=== PATIENT | female | born 1940 | race Caucasian/White ===

== ENCOUNTER 2022-10-23 06:08 | Day surgery (SDC) | payer OTHER ==
[2022-10-17 09:39] LABS: Hematocrit 40.3 % (36.0-45.0); Lymphocytes % 22.5 % (15.3-44.8); MCV 101.1 fL (80-100); MPV 8.9 fL (7.6-11.3); RBC Red Blood Cell Count 3.99 M/uL (3.86-4.86)
[2022-10-17 09:50] LABS: Potassium 3.6 mEq/L (3.5-5.1)
[2022-10-23] MEDS ORDERED: Ringers Lactate 1,000 ML IV ONE ×2 (06:29→09:18)
[2022-10-23] MEDS ORDERED: CEFAZOLIN SODIUM 1 GM/VIAL ONE (06:29)
[2022-10-23] MEDS ORDERED: propofoL 200 MG/20 ML VIAL IV ONE ×6 (06:31→09:28)
[2022-10-23] MEDS ORDERED: LIDOCAINE 2% MPF 5 ML VIAL ONE (06:31)
[2022-10-23] MEDS ORDERED: MIDAZOLAM HCL 2 MG/2 ML INJ ONE (06:31)
[2022-10-23] MEDS ORDERED: FENTANYL CITR 100 MCG/2 ML ONE ×2 (06:31→08:10)
[2022-10-23] MEDS ORDERED: ONDANSETRON 4 MG/2 ML VIAL ONE (06:32)
[2022-10-23] MEDS ORDERED: ROCURONIUM 50 MG/5 ML VIAL IV ONE (06:33)
[2022-10-23] MEDS ORDERED: GLYCOPYRROLATE 0.2 MG/ML SYR ONE (06:33)
[2022-10-23] MEDS ORDERED: NEOSTIGMINE 1 MG/ML -10 ML VIAL ONE (06:34)
[2022-10-23] MEDS ORDERED: THROMBIN 5000 UNITS/VIAL TOP ONE (06:35)
[2022-10-23] MEDS ORDERED: DEPO-MEDROL 40 MG/ML IM ONE (06:35)
[2022-10-23] MEDS ORDERED: VANCOMYCIN 1 GM/VIAL ONE (06:49)
[2022-10-23] MEDS ORDERED: EPHEDRINE SULF 50 MG/ML VIAL ONE (07:48)
[2022-10-23] MEDS ORDERED: HYDRALAZINE HCL 20 MG/ML VIAL ONE (08:15)
[2022-10-23] MEDS ORDERED: dexAMETHasone 10 MG/ML VIAL ONE (08:35)
[2022-10-23] MEDS ORDERED: Phenylephrine HCl 10 MG/ML 1 ML VIAL ONE (08:40)
[2022-10-23] MEDS ORDERED: Mastisol Adhesive Liq ONE (09:52)
[2022-10-23] MEDS: HYDROMORPHONE HCL 1 MG/ML INJ ONE ×4 (10:06→10:37)
[2022-10-23 10:52] VITALS: TEMP 97.1
--- NOTE | 2022-10-23 11:07 | RAD REPORT ---
EXAM DESCRIPTION: RAD - Fluoroscopy <1 Hour - 10/23/2022 10:08 am CLINICAL HISTORY: L3-L4 SPINAL DECOMPRESSION COMPARISON: None available. FINDINGS: Nine Images were sent to PACS, documenting needle positions during L3-L4 spinal decompress ion procedure. No radiologist was available for the procedure, nor will any image interpretation he p rovided. Please refer to the procedural report for additional details. Fluoroscopy time: 0.1 Minutes. IMPRESSION: Documentation of fluoroscopy utilization as above.
[2022-10-23] MEDS ORDERED: HYDROCODONE/APAP 5/325 MG TAB ONE (11:43)
[2022-10-23 17:19] VITALS: BP 122/60; O2SAT 96
== END 2022-10-23 12:37 | disposition home or self-care (01) ==
LOC: OR 06:08
PROVIDERS: ATTEND Orthopaedic Surgery
PROC: 01NB0ZZ Release Lumbar Nerve, Open Approach (ICD-10-PCS; principal; 2022-10-23 07:00)
DX: M48.062 Spinal stenosis, lumbar region with neurogenic claudication (principal); I10 Essential (primary) hypertension; K21.9 Gastro-esophageal reflux disease without esophagitis
CPT/HCPCS: 85025; 80048; 36415; 63047; 63048; J0360; J2704 ×6; J2710; J2370; J2001; J2250; J3010 ×2; J1100; J1170 ×2; J2405; J7120 ×2; J0690; 76000; J1030

== ENCOUNTER 2023-01-18 17:02 | Inpatient (IN) | payer OTHER ==
[2023-01-18 17:29] LABS: Specific Gravity 1.017 (1.005-1.030); Urine Bacteria <20 /HPF (<20); Urine Bilirubin NEGATIVE (Negative); Urine Blood 1+ (Negative); Urine Clarity Extremely Turbid (Clear); Urine Color Yellow (Yellow); Urine Crystals Unidentified Few /HPF (None Seen); Urine Glucose NEGATIVE (Negative); Urine Mucus Slight /HPF (None Seen); Urine Protein TRACE (Negative); Urine Urobilinogen Normal (Normal); Urine WBC Clump Occasional /HPF (None Seen); Urine pH 5.5 (5.0-7.0)
--- OUTSIDE RECORDS SUMMARY | 2023-01-18 17:37 | XMS REPORT | Continuity of Care Document ---
:1940 Author Organization [facility] t Address [address] [place] [address] [place] [id number] Care Team Providers Name Role Phone PORTIABECKIEY - Primary Care Physician Unavailable Becky Silvestre MD Attending Clinician BECKY SILVESTRE Attending Clinician Unavailable GC_CASPER_Khoskiran_Kristen Attending Clinician Unavailable Doctor Unassigned, [place] Attending Clinician Unavailable TAINA HENDRIX Attending Clinician Unavailable JACKIE MATIAS Attending Clinician Unavailable JAMI_CASPER_Nicole_Kristen Admitting Clinician Unavailable JACKIE MATIAS Admitting Clinician Unavailable Payers Payer Name Policy Type Policy Number Effective Date Expiration Date S kaity AEREESE (MEDICARE [id number] 2021 REPLACEMENT PPO) 00:00:00 Problems Condition Condition Condition Status Onset Resolution Last Treating Co mments Source Name Details Category Date Date Treatment Clinician Date Primary Primary Disease Active [facility] hypertensi hypertensi 2-08 it y of on on 00:00: [place] 00 Medical Branch Allergies, Adverse Reactions, Alerts Allergy Allergy Status Severity Reaction(s) Onset Inactive Treating Comm ents Source Name Type Date Date Clinician No Known NA Active [facility] 09:26: l 16 ([place] No Known NA Active [facility] Allergie 8-15 Hospita [facility] 09:19: l 13 ([place]) No Known NA Active [facility] Allergie 8-14 Hospita s 09:46: l 00 ([place]) No Known NA Active 0 [facility] Allergie 8-14 Hospita s 09:45: l 56 ([place]) Iodine Propensi Active Other - See Uni vers ty to comments 2-08 ity of adverse 00:00: [place] reaction 00 Medical s Branch Tetanus Propensi Active Unknown - Univ ers And ty to See comments 2-08 ity of Diphther adverse 00:00: [place] . Tox reaction 00 Medical (Pf) s Branch IODINE DRUG Active Other-Cmnt Univer s INGREDI 2-08 ity of 00:00: [place] 00 Medical Branch TETANUS DRUG Active Unknown-Cmnt Uni vers AND 2-08 ity of DIPHTHER 00:00: [place] . TOX 00 Medical (PF) Branch No Known NA Active 2020-1 [facility] Allergie 2-22 Hospita s 02:10: l 51 ([place]) No Known NA Active 2020-1 [facility] Allergie 1-09 Hospita s 15:17: l 14 ([place]) No Known NA Active 2020-1 [facility] Allergie 0-19 Hospita s 14:16: l 56 ([place]) No Known NA Active 2020-1 [facility] Allergie 0-19 Hospita s 00:15: l 07 ([place]) No Known NA Active 2020-1 [facility] Allergie 0-17 Hospita s 22:21: l 23 ([place]) No Known NA Active 2020-1 [facility] Allergie 0-16 Hospita s 10:16: l 15 ([place]) No Known NA Active 2020-1 [facility] Allergie 0-15 Hospita s 17:43: l 09 ([place]) No Known NA Active 2020-1 [facility] Allergie 0-15 Hospita s 16:26: l 35 ([place]) No Known NA Active 2020-1 [facility] Allergie 0-15 Hospita s 11:56: l 12 ([place]) NO KNOWN Drug Active Univers ALLERGIE Class ity of S [facility] Social History Social Habit Start Date Stop Date Quantity Comments Source Exposure to 2022-08-25 2022-09-04 Not sure [facility] [place] SARS-CoV-2 (event) 00:00:00 13:19:00 Medica l Branch Sex Ass[birth year] [facility] [place] [facility] [place] 00:00:00 00:00:00 Medical Branch Smoking Status Start Date Stop Date Source Tobacco smoking consumption [facility] Medical unknown Branch Medications Ordered Filled Start Stop Current Ordering Indication Dosage Frequency Signature Comments Components Source Medication Medication Date Date Medication? Clinician (SIG) Name Name hydrALAZINE 0 Yes 25mg Take 1 Univ ers 25 mg 4-03 tablet by ity of tablet 14:25: mouth in [place] 20 the Medical morning Branch and 1 tablet at noon and 1 tablet in the evening. cloNIDine 2022-0 Yes .1mg Take 1 Univer s 0.1 mg 4-03 tablet by ity of tablet 14:25: mouth as [place] 20 needed (if Medical BP Branch >180/100). tamoxifen 0 Yes 20mg Take 1 Univer s 20 mg 4-03 tablet by ity of tablet 14:25: mouth in [place] 20 the Medical morning. Branch RABEprazole 0 Yes 20mg Take 1 Univ ers 20 mg 4-03 tablet by ity of tablet 14:25: mouth in [place] 20 the Medical morning. Branch losartan-hy Yes 1{tbl} Take 1 Un selene drochloroth 4-03 tablet by ity of iazide 14:25: mouth in [place] 100-25 mg 20 the Medical per tablet morning. Branc h venlafaxine 0 Yes 75mg Take 1 Univ ers XR 75 mg 24 4-03 capsule by it y of hr capsule 14:25: mouth [place] 20 daily with Medical breakfast. Branch zolpidem 10 0 Yes 10mg Take 1 Univ ers mg tablet 4-03 tablet by ity o f 14:25: mouth at [place] 20 bedtime as Medical needed for Branch Insomnia. ibuprofen 2022-0 Yes 200mg Take 1 Unive rs 200 mg 4-03 tablet by ity of tablet 14:25: mouth [place] 20 every 6 Medical (six) Branch hours as needed. aspirin 81 2022-0 Yes 81mg Take 1 Unive rs mg chewable 4-03 tablet by ity of tablet 14:25: mouth in [place] 20 the Medical morning. Branch naproxen 2023-0 Yes 250mg Take 1 Univer s 250 mg 4-03 tablet by ity of tablet 14:25: mouth as [place] 20 needed. Medical Branch hydrALAZINE 2022-0 Yes 25mg Take 1 Univ ers 25 mg 4-03 tablet by ity of tablet 14:25: mouth in [place] 20 the Medical morning Branch and 1 tablet at noon and 1 tablet in the evening. cloNIDine 2022-0 Yes .1mg Take 1 Univer s 0.1 mg 4-03 tablet by ity of tablet 14:25: mouth as [place] 20 needed (if Medical BP Branch >180/100). tamoxifen 2022-0 Yes 20mg Take 1 Univer s 20 mg 4-03 tablet by ity of tablet 14:25: mouth in [place] 20 the Medical morning. Branch RABEprazole 0 Yes 20mg Take 1 Univ ers 20 mg 4-03 tablet by ity of tablet 14:25: mouth in [place] 20 the Medical morning. Branch losartan-hy Yes 1{tbl} Take 1 Un selene drochloroth 4-03 tablet by ity of iazide 14:25: mouth in [place] 100-25 mg 20 the Medical per tablet morning. Branc h venlafaxine Yes 75mg Take 1 Univ ers XR 75 mg 24 4-03 capsule by it y of hr capsule 14:25: mouth [place] 20 daily with Medical breakfast. Branch zolpidem 10 Yes 10mg Take 1 Univ ers mg tablet 4-03 tablet by ity o f 14:25: mouth at [place] 20 bedtime as Medical needed for Branch Insomnia. ibuprofen 0 Yes 200mg Take 1 Unive rs 200 mg 4-03 tablet by ity of tablet 14:25: mouth [place] 20 every 6 Medical (six) Branch hours as needed. aspirin 81 2022-0 Yes 81mg Take 1 Unive rs mg chewable 4-03 tablet by ity of tablet 14:25: mouth in [place] 20 the Medical morning. Branch naproxen 2022-0 Yes 250mg Take 1 Univer s 250 mg 4-03 tablet by ity of tablet 14:25: mouth as [place] 20 needed. Medical Branch estradioL 2022-0 Yes [id number] Apply 1g Univers (ESTRACE) 4-03 vaginally ity o f 0.01 % (0.1 00:00: at bedtime [place] mg/gram) 00 3 times Medical vaginal per week Branch cream ( dn/ iday) estradioL 0 Yes [id number] Apply 1g Univers (ESTRACE) 4-03 vaginally ity o f 0.01 % (0.1 00:00: at bedtime [place] mg/gram) 00 3 times Medical vaginal per week Branch cream ( dn/ iday) Nitrofurant 0 2022- No [id number] 100mg Take 1 Univers oin&Nit. 3-15 08-24 capsule by ity of [place] 00:00: 04:59 mouth in [place] (MACROBID) 00 :00 the Medical 100 mg morning Branch capsule and 1 capsule in the evening. Do all this for 7 days. losartan-hy Yes 1{tbl} Take 1 Un selene drochloroth 2-08 tablet by ity of iazide 12:04: mouth in [place] (HYZAAR) 18 the Medical 100-25 mg morning. Branch per tablet venlafaxine Yes 75mg Take 75 mg Univers XR (EFFEXOR 2-08 by mouth ity of XR) 75 mg 12:04: daily with [place] 24 hr 18 breakfast. Medical capsule Branch zolpidem Yes 10mg Take 10 mg Uni vers (AMBIEN) 10 2-08 by mouth ity of mg tablet 12:04: at bedtime [place] 18 as needed Medical for Branch Insomnia. ibuprofen 0 Yes 200mg Take 200 Uni vers (ADVIL) 200 2-08 mg by ity of mg tablet 12:04: mouth [place] 18 every 6 Medical (six) Branch hours as needed. aspirin 81 0 Yes 81mg Take 81 mg U nivers mg chewable 2-08 by mouth ity of tablet 12:04: in the [place] 18 morning. Medical Branch naproxen 0 Yes 250mg Take 250 Univ ers 250 mg 2-08 mg by ity of tablet 12:04: mouth as [place] 18 needed. Medical Branch hydrALAZINE 0 Yes 25mg Take 25 mg Univers 25 mg 2-08 by mouth ity of tablet 12:04: in the [place] 18 morning Medical and 25 mg Branch at noon and 25 mg in the evening. cloNIDine 2022-0 Yes .1mg Take 0.1 Univ ers 0.1 mg 2-08 mg by ity of tablet 12:04: mouth as [place] 18 needed (if Medical BP Branch >180/100). tamoxifen 2022-0 Yes 20mg Take 20 mg Un selene 20 mg 2-08 by mouth ity of tablet 12:04: in the [place] 18 morning. Medical Branch RABEprazole 2022-0 Yes 20mg Take 20 mg Univers (ACIPHEX) 2-08 by mouth ity of 20 mg 12:04: in the [place] tablet 18 morning. Medical Branch losartan-hy 2022-0 Yes 1{tbl} Take 1 Un selene drochloroth 2-08 tablet by ity of iazide 12:04: mouth in [place] (HYZAAR) 18 the Medical 100-25 mg morning. Branch per tablet venlafaxine 2022-0 Yes 75mg Take 75 mg Univers XR (EFFEXOR 2-08 by mouth ity of XR) 75 mg 12:04: daily with [place] 24 [place] 18 breakfast. Medical capsule Branch zolpidem 2022-0 Yes 10mg Take 10 mg Uni vers (AMBIEN) 10 2-08 by mouth ity of mg tablet 12:04: at bedtime [place] 18 as needed Medical for Branch Insomnia. ibuprofen 2022-0 Yes 200mg Take 200 Uni vers (ADVIL) 200 2-08 mg by ity of mg tablet 12:04: mouth [place] 18 every 6 Medical (six) Branch hours as needed. aspirin 81 2022-0 Yes 81mg Take 81 mg U nivers mg chewable 2-08 by mouth ity of tablet 12:04: in the [place] 18 morning. Medical Branch naproxen 2022-0 Yes 250mg Take 250 Univ ers 250 mg 2-08 mg by ity of tablet 12:04: mouth as [place] 18 needed. Medical Branch hydrALAZINE 2022-0 Yes 25mg Take 25 mg Univers 25 mg 2-08 by mouth ity of tablet 12:04: in the [place] 18 morning Medical and 25 mg Branch at noon and 25 mg in the evening. cloNIDine 2022-0 Yes .1mg Take 0.1 Univ ers 0.1 mg 2-08 mg by ity of tablet 12:04: mouth as [place] 18 needed (if Medical BP Branch >180/100). tamoxifen 2022-0 Yes 20mg Take 20 mg Un selene 20 mg 2-08 by mouth ity of tablet 12:04: in the [place] 18 morning. Medical Branch RABEprazole 2022-0 Yes 20mg Take 20 mg Univers (ACIPHEX) 2-08 by mouth ity of 20 mg 12:04: in the [place] tablet 18 morning. Medical Branch losartan-hy 2022-0 Yes 1{tbl} Take 1 Un selene drochloroth 2-08 tablet by ity of iazide 12:04: mouth in [place] (HYZAAR) 18 the Medical 100-25 mg morning. Branch per tablet venlafaxine 2022-0 Yes 75mg Take 75 mg Univers XR (EFFEXOR 2-08 by mouth ity of XR) 75 mg 12:04: daily with [place] 24 hr 18 breakfast. Medical capsule Branch zolpidem 2022-0 Yes 10mg Take 10 mg Uni vers (AMBIEN) 10 2-08 by mouth ity of mg tablet 12:04: at bedtime [place] 18 as needed Medical for Branch Insomnia. ibuprofen 2022-0 Yes 200mg Take 200 Uni vers (ADVIL) 200 2-08 mg by ity of mg tablet 12:04: mouth [place] 18 every 6 Medical (six) Branch hours as needed. aspirin 81 2022-0 Yes 81mg Take 81 mg U nivers mg chewable 2-08 by mouth ity of tablet 12:04: in the [place] 18 morning. Medical Branch naproxen 2022-0 Yes 250mg Take 250 Univ ers 250 mg 2-08 mg by ity of tablet 12:04: mouth as [place] 18 needed. Medical Branch hydrALAZINE 2022-0 Yes 25mg Take 25 mg Univers 25 mg 2-08 by mouth ity of tablet 12:04: in the [place] 18 morning Medical and 25 mg Branch at noon and 25 mg in the evening. cloNIDine 3-0 Yes .1mg Take 0.1 Univ ers 0.1 mg 2-08 mg by ity of tablet 12:04: mouth as [place] 18 needed (if Medical BP Branch >180/100). tamoxifen 2022-0 Yes 20mg Take 20 mg Un selene 20 mg 2-08 by mouth ity of tablet 12:04: in the [place] 18 morning. Medical Branch RABEprazole 2023-0 Yes 20mg Take 20 mg Univers (ACIPHEX) 2-08 by mouth ity of 20 mg 12:04: in the [place] tablet 18 morning. Medical Branch losartan-hy 0 Yes 1{tbl} Take 1 Un selene drochloroth 2-08 tablet by ity of iazide 12:04: mouth in [place] (HYZAAR) 18 the Medical 100-25 mg morning. Branch per tablet venlafaxine 0 Yes 75mg Take 75 mg Univers XR (EFFEXOR 2-08 by mouth ity of XR) 75 mg 12:04: daily with [place] 24 hr 18 breakfast. Medical capsule Branch zolpidem 0 Yes 10mg Take 10 mg Uni vers (AMBIEN) 10 2-08 by mouth ity of mg tablet 12:04: at bedtime [place] 18 as needed Medical for Branch Insomnia. ibuprofen 0 Yes 200mg Take 200 Uni vers (ADVIL) 200 2-08 mg by ity of mg tablet 12:04: mouth [place] 18 every 6 Medical (six) Branch hours as needed. aspirin 81 0 Yes 81mg Take 81 mg U nivers mg chewable 2-08 by mouth ity of tablet 12:04: in the [place] 18 morning. Medical Branch naproxen 0 Yes 250mg Take 250 Univ ers 250 mg 2-08 mg by ity of tablet 12:04: mouth as [place] 18 needed. Medical Branch hydrALAZINE 0 Yes 25mg Take 25 mg Univers 25 mg 2-08 by mouth ity of tablet 12:04: in the [place] 18 morning Medical and 25 mg Branch at noon and 25 mg in the evening. cloNIDine 0 Yes .1mg Take 0.1 Univ ers 0.1 mg 2-08 mg by ity of tablet 12:04: mouth as [place] 18 needed (if Medical BP Branch >180/100). tamoxifen 2022-0 Yes 20mg Take 20 mg Un selene 20 mg 2-08 by mouth ity of tablet 12:04: in the [place] 18 morning. Medical Branch RABEprazole 0 Yes 20mg Take 20 mg Univers (ACIPHEX) 2-08 by mouth ity of 20 mg 12:04: in the [place] tablet 18 morning. Medical Branch estradioL 2023-0 Yes [id number] Apply 1g Univers (ESTRACE) 2-08 vaginally ity o f 0.01 % (0.1 00:00: at bedtime [place] mg/gram) 00 every Medical vaginal night for Branch cream 4 weeks and then apply 1g vaginally at bedtime 3 times per week estradioL Yes [id number] Apply 1g Univers (ESTRACE) 2-08 vaginally ity o f 0.01 % (0.1 00:00: at bedtime [place] mg/gram) 00 every Medical vaginal night for Branch cream 4 weeks and then apply 1g vaginally at bedtime 3 times per week estradioL Yes [id number] Apply 1g Univers (ESTRACE) 2-08 vaginally ity o f 0.01 % (0.1 00:00: at bedtime [place] mg/gram) 00 every Medical vaginal night for Branch cream 4 weeks and then apply 1g vaginally at bedtime 3 times per week estradioL Yes [id number] Apply 1g Univers (ESTRACE) 2-08 vaginally ity o f 0.01 % (0.1 00:00: at bedtime [place] mg/gram) 00 every Medical vaginal night for Branch cream 4 weeks and then apply 1g vaginally at bedtime 3 times per week estradioL 2022- No [id number] Apply 1g Univers (ESTRACE) 07-12-03 vaginally ity of 0.01 % (0.1 00:00: 00:00 at bedtime [place] mg/gram) 00 :00 every Medical vaginal night for Branch cream 4 weeks and then apply 1g vaginally at bedtime 3 times per week estradioL 2022- No [id number] Apply 1g Univers (ESTRACE) 07-12-03 vaginally ity of 0.01 % (0.1 00:00: 00:00 at bedtime [place] mg/gram) 00 :00 every Medical vaginal night for Branch cream 4 weeks and then apply 1g vaginally at bedtime 3 times per week Vital Signs Vital Name Observation Time Observation Value Comments Source Body height 2022-09-04 19:00:00 167.6 cm [facility] Body weight 2022-09-04 19:00:00 58.514 kg [facility] BMI 2022-09-04 19:00:00 20.82 kg/m2 Universi ty of [facility] Systolic blood 2022-09-04 19:00:00 182 mm[Hg] Univer sity of pressure [facility] Diastolic blood 2022-09-04 19:00:00 99 mm[Hg] Unive rsity of pressure [facility] Respiratory rate 2022-09-04 19:00:00 18 /min Univ ersity of [facility] Procedures Procedure Date / Time Performed Performing Clinician Sourc e PHYSICIAN ORDERS 2022-08-09 06:01:00 [facility] Start End Encounter Admission Attending Care Care Encounter Source Date/Time Date/Time Type Type Clinicians Facility Department ID 2022-09-04 2022-09-04 Office [facility] [id number] [id number] Univers 14:00:00 14:30:00 Visit Becky AVITIA 350.1.13.10 i [place] [id number] Sd dicharvinder NAL 098 [facility] 2022-09-04 2022-09-04 Outpatient R BECKY SILVESTRE [facility] [id number] Univers 14:00:00 14:00:00 BECKY SILVESTRE [facility] 2022-08-16 2022-08-16 Outpatient GC_AKPS_Kho PRIV PRIV [id number] [facility] 00:00:00 00:00:00 sla_A [id number] Medica l 2022-08-16 2022-08-16 Telephone [facility] 1.2.840.114 [id number] Univers 00:00:00 00:00:00 Becky AVITIA 350.1.13.10 [place] [id number] Sd dical NAL 134 [facility] 2022-08-11 2022-08-11 Telephone [facility] 1.2.840.114 [id number] Univers 00:00:00 00:00:00 Becky SILVESTRE 350.1.13.10 it y of [place]2.686 [place] [facility] [id number] [address] 2022-08-09 2022-08-09 [facility] 1.2.840.114 [id number] Univers 00:00:00 00:00:00 [facility] 350.1.13.10 it y of [place] 4.2.7.2.686 [place] as IVELISSE?BLEA [phone] [address] MEDICAL OFFICE BUILDING 2022-08-09 2022-08-09 Orders Doctor WILTON 1.2.840.114 [id number] Univers 00:00:00 00:00:00 Only Unassigned, NIGEL 350.1.13.10 ity of [place] [facility] 4.2.7.2.686 [place] as [id number] [address] 2022-07-13 2022-07-13 [facility] [id number] Univers 13:00:00 13:00:00 TAINA jeromelaura o f [facility] 2022-07-12 2022-07-12 [facility] [id number] Univers 10:30:00 11:44:49 BECKY [facility] [place] [facility] 2022-06-08 2022-06-08 Outpatient GC_AKPS_Kho PRIV PRIV [id number] [facility] 00:00:00 00:00:00 sla_A [id number] Medica l 2020-03-18 2020-03-18 Emergency SHUBHAM MATIAS QER [id number] 88- [facility] 11:55:00 11:55:00 JACKIE [id number] Hospi ta l ([facility]) Results Test Description Test Time Test Comments Results Result Comments Source SEDIMENTATION RATE 2020-03-18 17:19:00 Test Item Value Reference Range Interpretation Comme nts SED RATE (test code = ESR) 8 MM/HR 0-20 CT HEAD W/O [id number] 16:59:00 [facility] - BENIName: MELLO GAMBLE : 1940 Sex: [place] [id number] [facility] [id number] IMAGING REPORTPatient Name: Caryn GAMBLE of Service: [id number]: 79 Sex: F Order #: [id number] Room: ERDOB: 1940 X-Ray Number: [id number] Record Number: [id number] Hospital Number: [id number] Physician: JACKIE MATIASOrdering Physician: ANDREINA ESTEVES SCT scan of the brain and a CT scanof the orbits, both exams done in theaxial plane with sagittal and coronal reconstructed images.Thispatient presents with bilateral eye bruising, worse on the right side.There is no known history of trauma.There is a small polyp in the left ethmoid sinus and a small polyp in thesuperior aspect of theright maxillary sinus.The orbital structures and paranasal sinuses and facial structures areotherwise normal.There are findings of mild cerebral atrophy. There are no acuteintracranial abnormalities. There is no evidence of a cortical infarct,intracerebral hemorrhage, mass or subdural hematoma.The posterior fossa structures and calvarium structures are normal.IMPRESSION:There are no acute findings ontoday's CT scans of the brain and orbits.There are findings of mild cerebral atrophy. There is also a small polyp inthe left sphenoid sinus and in the right maxillary sinus.Electronically Signed By: Mane Shin M.D., 03/18/2020 4:56 PMLegally authenticated by REENA HENRY 2020-03-18 16:56:26CT ORBITS/SELLA/[id number] 16:58:00 [facility] : 1940 [facility] [place], [place] [id number] IMAGING REPORTPatient Name: MELLO GAMBLEDate of Service: [id number]: 79 Sex: F Order #: [id number] [facility] 1940 X-Ray Number: [id number] Record Number: [id number] Hospital Number: [id number] Physician: JACKIE MATIASOrdering Physician: ANDREINA ESTEVES SCT scan of the brain and a CT scanof the orbits, both exams done in theaxial plane with sagittal and coronal reconstructed images.Thispatient presents with bilateral eye bruising, worse on the right side.There is no known history of trauma.There is a small polyp in the left ethmoid sinus and a small polyp in thesuperior aspect of theright maxillary sinus.The orbital structures and paranasal sinuses and facial structures areotherwise normal.There are findings of mild cerebral atrophy. There are no acuteintracranial abnormalities. There is no evidence of a cortical infarct,intracerebral hemorrhage, mass or subdural hematoma.The posterior fossa structures and calvarium structures are normal.IMPRESSION:There are no acute findings ontoday's CT scans of the brain and orbits.There are findings of mild cerebral atrophy. There is also a small polyp inthe left sphenoid sinus and in the right maxillary sinus.Electronically Signed By: Mane Shin M.D., 03/18/2020 4:56 PMLegally authenticated by REENA HENRY 2020-03-18 16:56:26 [facility] [id number] 16:22:00 Test Item Value Reference Range Interpretation Comments SODIUM (test code 130 MMOL/L 137-145 L = NA) K+ (test code = 3.7 MMOL/L 3.5-5.1 KSERUM) CHLORIDE (test 96 MMOL/L 98-107 L code = CL) CO2 (test code = 27 MMOL/L 22-30 CO2) BUN (test code = 25 MG/DL 7-17 H BUN) CREA (test code = 1.0 MG/DL 0.7-1.2 CREA) GLUCOSE (test code 107 MG/DL 70-99 H Fasting glucose = GLUCOSE) normal <100 MG/ DL- [employer] recommendation* * CALCIUM (test code 10.3 MG/DL 8.4-10.2 H = CABLOOD) GFR (test code = TNP GFR CALCULA TION IS GFR) mL/min/1.73m2 NOT APPLICABLE FOR PATIENTS <18 A GFR of >90 mL/min/1.73 m2 is considered norm al. I-STAT [id number] 16:10:00 Test Item Value Reference Range Interpretation Comments ISTCREA (test code = ISTCREA) 1.1 MG/DL 0.7-1.5 [id number] 16:07:00 Test Item Value Reference Range Interpretation Comments WBC (test code = 10.0 K/UL 3.5-10.9 WBC) RBC (test code = 4.06 M/UL 4.0-5.0 RBC) HGB (test code = 13.7 G/DL 11.5-15.5 HGB) HCT (test code = 40.7 % 34-46 HCT) MCV (test code = 100.2 FL 80-98 H MCV) MCH (test code = 33.7 PG 28-32 H MCH) MCHC (test code = 33.7 G/DL 32.5-36.5 MCHC) RDW (test code = 12.0 % 11.5-14.5 RDW) PLT (test code = 165 K/UL 150-450 PLT) MPV (test code = 11.9 FL 7.4-10.4 H MPV) MANDIFF (test code = NO MANDIFF) SCAN (test code = NO SCAN) NEUT% (test code = 63.5 % 40-75 NEUT%) LYMPH% (test code = 27.1 % 24-44 LYMPH%) MONO% (test code = 7.2 % 0-13 MONO%) EOS% (test code = 1.2 % 0-4 EOS%) BASO % (test code = 0.7 % 0-2 BASO%) IG (test code = IG) 0 % 0-1 IG% (test code = 0.3 % 0-1 IG% = Metam yelocytes, IG%) Myelocytes, and Promyelocytes. (Immature neutr ophils not including " bands".) > 3% IG indic ates risk of sepsis NRBC% (test code = 0 /100 WBC NRBC%) ABS NEUT (test code 6.3 K/UL 1.2-7.2 = NEUT) Notes Date/Time Note Provider Source 2020-03-18 16:56:26-00:00 [facility]E [facility] [place] [address] DIAGNOSTIC IMAGING REPORT Patient Name: MELLO GAMBLE Date of Service: 03-18-2020 Age: 79 Sex: F Order #: [id number] Room: [facility] : 1940 X-Ray Number: [id number] Hospital Number : [id number] Admitting Physician: JACKIE MATIAS Ordering Physician: ANDREINA ESTEVES CT scan of the brain and a CT scan of the orbits , both exams done in the axial plane with sagittal and coronal reconstruc adriano images. This patient presents with bilateral eye bruisin g, worse on the right side. There is no known history of trauma. There is a small polyp in the left ethmoid sinus and a small polyp in the superior aspect of the right maxillary sinus. The orbital structures and paranasal sinuses and facial structures are otherwise normal. There are findings of mild cerebral atrophy. The re are no acute intracranial abnormalities. There is no evidence of a cortical infarct, intracerebral hemorrhage, mass or subdural hemat moses. The posterior fossa structures and calvarium str uctures are normal. IMPRESSION: There are no acute findings on today's CT scans of the brain and orbits. There are findings of mild cerebral atrophy. The re is also a small polyp in the left sphenoid sinus and in the right maxilla ry sinus. Electronically Signed By: Caleb Hadley, 03/18/2020 4:56 PM Legally authenticated by REENA HENRY 2020-03 16:56:26 2020-03-18 16:56:26-00:00 [facility] [address] [place] [address] DIAGNOSTIC IMAGING REPORT Patient Name: MELLO GAMBLE Date of Service: 03-18-2020 Age: 79 Sex: F Order #: [id number] Room: [facility] : 1940 X-Ray Number: [id number] Hospital Number : [id number] Admitting Physician: JACKIE MATIAS Ordering Physician: ANDREINA ESTEVES CT scan of the brain and a CT scan of the orbits , both exams done in the axial plane with sagittal and coronal reconstruc adriano images. This patient presents with bilateral eye bruisin g, worse on the right side. There is no known history of trauma. There is a small polyp in the left ethmoid sinus and a small polyp in the superior aspect of the right maxillary sinus. The orbital structures and paranasal sinuses and facial structures are otherwise normal. There are findings of mild cerebral atrophy. The re are no acute intracranial abnormalities. There is no evidence of a cortical infarct, intracerebral hemorrhage, mass or subdural hemat moses. The posterior fossa structures and calvarium str uctures are normal.
[2023-01-18 17:49] LABS: Absolute Lymphocytes (CBC) 1.4 K/uL (0.7-4.9); Hematocrit 43.2 % (36.0-45.0); Lymphocytes % 11.4 % (15.3-44.8); MPV 9.9 fL (7.6-11.3); Platelets 261 thou/uL (152-406); RBC Red Blood Cell Count 4.41 M/uL (3.86-4.86)
[2023-01-18 17:53] LABS: Protime INR 0.96
[2023-01-18 18:08] LABS: Albumin 3.6 g/dL (3.4-5.0); Potassium 3.5 mEq/L (3.5-5.1); Protein, Total 7.1 g/dL (6.4-8.2); Thyroid Stimulating Hormone 0.372 uIU/mL (0.358-3.740)
--- NOTE | 2023-01-18 18:09 | RAD REPORT ---
EXAM DESCRIPTION: CT - CTHCSPWOC - 01/18/2023 5:53 pm CLINICAL HISTORY: Trauma, head and neck injury. fall COMPARISON: No comparisons TECHNIQUE: Axial 5 mm thick images of the head were obtained. Axial 2 mm thick images of the cervical spine were obtained with sagittal and coronal reconstruction images generated and reviewed. All CT scans are performed using dose optimization technique as appropriate and may include automated exposure control or mA/KV adjustment according to patient size. FINDINGS: CT HEAD WITHOUT CONTRAST: No acute hemorrhage, hydrocephalus or extra-axial collection is identified.Area of white matter hypoa ttenuation in the left foy radiata and basal ganglia could represent an acute or subacute infarct. Moderate to advanced chronic small vessel ischemic changes. The paranasal sinuses and mastoids are clear.The calvarium is intact. CT CERVICAL SPINE WITHOUT CONTRAST: No fracture or subluxation.No prevertebral soft tissues swelling is identified. Multilevel degenerati ve changes are present in the spine. Varying degrees of neural foraminal narrowing noted. Anterolisth esis of C3 on C4 and C4 on C5 is likely related to facet degenerative changes. IMPRESSION: 1. Hypoattenuation in the left foy radiata/basal ganglia could represent an acute inf arct. Background of advanced chronic small vessel ischemic changes. MRI could better assess. 2. No fracture or traumatic malalignment of the cervical spine.
[2023-01-18 18:11] LABS: Troponin High Sensitivity 72.7 pg/mL (<58.9)
--- NOTE | 2023-01-18 18:16 | RAD REPORT ---
EXAM DESCRIPTION: RAD - Chest Single View - 01/18/2023 6:07 pm CLINICAL HISTORY: sepsis COMPARISON: No comparisons FINDINGS: Lines: None. Lungs: No evidence of edema or pneumonia. Pleural: No significant pleural effusions or pneumothorax. Cardiac: The heart size is within normal limits. Mediastinum: Within normal limits. Bones: No acute fractures. Shoulder arthroplasties. Other: None IMPRESSION: No acute cardiopulmonary disease.
--- NOTE | 2023-01-18 18:40 | ER ---
Nurse's Notes [facility] Name: Adamaris Mccrary Age: 82 yrs Sex: Female : 1940 Arrival Date: 01/18/2023 Time: 17:02 Bed 2 Private MD: Diagnosis: UTI/ Urinary tract infection, site not specified;Cerebrovascular accident Presentation: 01/18 17:10 Chief complaint: EMS states: patient lives at home alone, and was communicating ap3 appropriately with family on the phone until 2 days ago. family came to check on her today, and found her on the livingroom floor. patient was awake but not verbally responsive when EMS arrived. patient became verbally responsive during EMS's assessment. Patient presents to the ED with right sided mouth droop, slurred speech, and smelling of urine. Coronavirus screen: At this time, the client does not indicate any symptoms associated with coronavirus-19. Ebola Screen: No symptoms or risks identified at this time. Risk Assessment: Do you want to hurt yourself or someone else? Patient reports no desire to harm self or others. Onset of symptoms is unknown. 17:10 Method Of Arrival: EMS: [facility] ap3 17:10 Acuity: SARAH 2 ap3 17:13 Care prior to arrival: Medication(s) given: Normal saline infusion, 1000 mL, IV ap3 initiated. 18 GA, in the right antecubital area. 18:34 Initial Sepsis Screen: Does the patient meet any 2 criteria? No. Patient's initial ap3 sepsis screen is negative. Does the patient have a suspected source of infection? Yes: Other: frequent UTI's. Triage Assessment: 17:13 General: Appears ill, Behavior is calm. General: Smells of urine. Pain: Denies pain. ap3 Neuro: Level of Consciousness is awake, alert, obeys commands, Oriented to person, Auto Tester are equal bilaterally Moves all extremities. Speech is slurred, Facial droop on right, Pupils are PERRLA. Cardiovascular: Patient's skin is warm and dry. Respiratory: Airway is patent Respiratory effort is even, unlabored, Respiratory pattern is regular, symmetrical. Historical: - Allergies: 17:12 Iodine; ap3 - PMHx: 17:12 Hypertensive disorder; UTI; dislocated left shoulder; ap3 - Immunization history:: Adult Immunizations up to date. - Family history:: not pertinent. - Social history:: Smoking status: Patient denies any tobacco usage or history of. Patient/guardian denies using alcohol. Screenin:15 [facility] ED Fall Risk Assessment (Adult) History of falling in the last 3 months, ap3 including since admission Yes- fall prone (multiple falls) (3 pts) Confusion or Disorientation Yes (5 pts) Intoxicated or Sedated No (0 pts) Impaired Gait Yes (1 pt) Mobility Assist Device Used Yes (1 pt) Altered Elimination Yes (1 pt). Abuse screen: Denies threats or abuse. Tuberculosis screening: No symptoms or risk factors identified. 17:47 Nutritional screening: No deficits noted. ld1 18:50 [place] Swallow Protocol Exclusion Criteria: Unable to remain alert for testing: No NPO ap3 for medical/surgical reason by provider order No Head-of-bed restricted <30 degrees Tracheostomy tube present No No thin liquids due to preexisting dysphagia/baseline modified diet thickened liquids No Exclusion Criteria Result: Proceed Brief Cognitive Screen What is your name? Normal, Where are you right now? Normal, What year is it? Normal. Oral Mechanism Examination Facial Symmetry: Abnormal: right sided droop present. 3 oz Water Swallow Challenge: Pt able to drink all water without stopping, coughing, choking or throat clearing: No Result: FAIL MD Notified: Tommy Roberts MD. Assessment: 17:47 General: Appears in no apparent distress. uncomfortable, unkempt, Behavior is calm, ld1 cooperative. Pain: Denies pain. Neuro: Level of Consciousness is awake, alert, confused, Oriented to person. Cardiovascular: Capillary refill < 3 seconds Patient's skin is warm and dry. Respiratory: Airway is patent Respiratory effort is even, unlabored. GI: Abdomen is flat, non-distended. : No signs and/or symptoms were reported regarding the genitourinary system. EENT: No signs and/or symptoms were reported regarding the EENT system. Derm: Bruising that is dark purple, on buttocks, right arm, left arm, right leg and left leg. Musculoskeletal: No signs and/or symptoms reported regarding the musculoskeletal system. 19:10 Reassessment: Patient appears in no apparent distress at this time. Patient and/or jb4 family updated on plan of care and expected duration. Pain level reassessed. Patient is alert, oriented x 3, equal unlabored respirations, skin warm/dry/pink. family at the bedside. 19:53 Reassessment: Patient appears in no apparent distress at this time. Patient and/or jb4 family updated on plan of care and expected duration. Pain level reassessed. Patient is alert, oriented x 3, equal unlabored respirations, skin warm/dry/pink. Vital Signs: 17:10 Temp 98; Weight 55 kg; ap3 17:33 BP 189 / 92; Pulse 85; Resp 17; ap3 18:24 BP 167 / 94; Pulse 85; Pulse Ox 100% ; ap3 19:53 BP 169 / 97; Pulse 86; Resp 16; Pulse Ox 98% on R/A; jb4 NIH Stroke Scale Scores: 18:43 NIHSS Score: 3 ap3 ED Course: 17:10 Patient arrived in ED. ap3 17:10 Tommy Roberts MD is Attending Physician. rt 17:12 Triage completed. ap3 17:15 Arm band placed on left wrist. ap3 17:15 Patient has correct armband on for positive identification. Placed in gown. Bed in low ap3 position. Call light in reach. Side rails up X2. 17:26 Rosa Carney, RN is Primary Nurse. ap3 17:37 Blood Culture Adult (2) Sent. ld1 17:37 Lactate w/ 2H reflex if indic. Sent. ld1 17:37 CMP Sent. ld1 17:37 CBC with Diff Sent. ld1 17:37 Protime (+inr) Sent. ld1 17:37 Ptt, Activated Sent. ld1 17:37 TSH Sent. ld1 17:37 Urine Culture Sent. ld1 17:37 CPK Sent. ld1 17:37 Troponin High Sensitivity Sent. ld1 17:38 Inserted saline lock: 20 gauge in left forearm, using aseptic technique. Blood ld1 collected. Maintain EMS IV. Dressing intact. Good blood return noted. Site clean \T\ dry. Gauge \T\ site: 18G RAC. 17:47 desk monitor on. Pulse ox on. NIBP on. Door closed. Noise minimized. Warm blanket ld1 given. 17:47 Repositioned patient. Cleaned of incontinence. Linen changed. ld1 17:55 CT Head C Spine In Process Unspecified. EDMS 18:09 Chest Single View XRAY In Process Unspecified. EDMS 18:34 Pt visited by daughter, son. ap3 18:38 Mike Garcia MD is Hospitalizing Provider. rt 18:59 Provided Education on: medication prior to administration . ap3 18:59 No provider procedures requiring assistance completed. Patient admitted, IV remains in ap3 place. Administered Medications: 17:27 Drug: NS 0.9% IV 1000 ml Route: IV; Rate: 1 bolus; Site: right antecubital; ap3 18:46 Follow up: IV Status: Completed infusion ap3 18:43 Drug: Rocephin IV 2 grams Route: IV; Rate: calculated rate; Site: right antecubital; ap3 20:37 Follow up: Response: No adverse reaction; IV Status: Completed infusion; IV Intake: [id number] 18:52 Not Given (failed swallow screen ): Aspirin PO 325 mg PO once ap3 Medication: 18:34 VIS not applicable for this client. ap3 Intake: 20:37 IV: 50ml; Total: 50ml. as6 Outcome: 18:39 Decision to Hospitalize by Provider. rt 18:59 Condition: good ap3 19:53 Discharge instructions given to patient, family, Instructed on the need for admit, jb4 Demonstrated understanding of instructions. 20:36 Admitted to Med/surg accompanied by tech, via stretcher, room 212, with chart. as6 20:36 Patient left the ED. as6 NIH Stroke Scale - NIH Stroke Score Date: 01/18/2023 Time: 18:43 Total Score = 3 10. Dysarthria (speech clarity - read or repeat words) - 1(Mild to Moderate) 11. Extinction and Inattention (visual/tactile/auditory/spatial/personal) - 0(No abnormality) 1a. Level of Consciousness (LOC) - 0(Alert) 1b. Level of Consciousness (LOC) (Month \T\ Age) - 0(Both) 1c. LOC Commands (Open \T\ Closes Eyes/Irrigation Equipment Remover) - 0(Both) 2. Best Gaze (Lateral Gaze Paresis) - 0(Normal) 3. Visual Field Loss - 0(No visual loss) 4. Facial Palsy - 1(Minor Paralysis) 5a. Left Arm: Motor (10-second hold) - 0(No drift) 5b. Right Arm: Motor (10-second hold) - 0(No drift) 6a. Left Leg: Motor (5-second hold - always test supine) - 0(No drift) 6b. Right Leg: Motor (5-second hold - always test supine) - 0(No drift) 7. Limb Ataxia (finger/nose \T\ heel/cain - test with eyes open) - 0(Absent) 8. Sensory Loss (pinprick arms/legs/face) - 0(Normal) 9. Best Language: Aphasia (description/naming/reading) - 1(Mild to moderate aphasia) Initials: ap3 Signatures: Dispatcher [employer] Shine Gonzales RN RN jb4 Rosa Carney RN RN ap3 Sole Frank RN RN ld1 Isac Laurent RN RN as6 Tommy Roberts MD MD rt
--- NOTE | 2023-01-18 18:40 | EDPHYS ---
Physician Documentation [facility] Name: Adamaris Mccrary Age: 82 yrs Sex: Female : 1940 Arrival Date: 01/18/2023 Time: 17:02 Bed 2 Private MD: ED Physician Tommy Roberts HPI: 01/18 17:29 This 82 yrs old Female presents to ER via EMS with complaints of Found down. rt 17:29 Patient presents to the ED after being found down. Patient does live alone, family rt checks on her daily, did not respond for about 2 days. They found the patient lying on the ground in a puddle of urine. A right-sided facial droop was noted. Patient denies hitting her head. States that she has been laying the ground for more than 2 days, has been unable to get up. Patient denies any pain. Denies other acute complaints, symptoms are moderate severity, no other aggravating or alleviating factors. Historical: - Allergies: 17:12 Iodine; ap3 - PMHx: 17:12 Hypertensive disorder; UTI; dislocated left shoulder; ap3 - Immunization history:: Adult Immunizations up to date. - Family history:: not pertinent. - Social history:: Smoking status: Patient denies any tobacco usage or history of. Patient/guardian denies using alcohol. ROS: 17:29 Constitutional: Negative for fever, chills, and weight loss, Cardiovascular: Negative rt for chest pain, palpitations, and edema, Respiratory: Negative for shortness of breath, cough, wheezing, and pleuritic chest pain, Abdomen/GI: Negative for abdominal pain, nausea, vomiting, diarrhea, and constipation, Skin: Negative for injury, rash, and discoloration, Psych: Negative for depression, anxiety, suicide ideation, homicidal ideation, and hallucinations. 17:29 Neuro: Positive for Generalized weakness, facial. Exam: 17:29 Constitutional: This is a well developed, well nourished patient who is awake, alert, rt and in no acute distress. Head/Face: Normocephalic, atraumatic. Chest/axilla: Normal chest wall appearance and motion. Nontender with no deformity. No lesions are appreciated. Cardiovascular: Regular rate and rhythm with a normal S1 and S2. No gallops, murmurs, or rubs. Normal PMI, no JVD. No pulse deficits. Respiratory: Lungs have equal breath sounds bilaterally, clear to auscultation and percussion. No rales, rhonchi or wheezes noted. No increased work of breathing, no retractions or nasal flaring. Abdomen/GI: Soft, non-tender, with normal bowel sounds. No distension or tympany. No guarding or rebound. No evidence of tenderness throughout. 17:29 ECG was reviewed by the Attending Physician. 17:29 Musculoskeletal/extremity: Chronic dislocation to the left shoulder, no tenderness on bilateral hips.. 17:29 Neuro: 4/5 strength on all 4 extremities, sensation is intact in all 4 tremors, right-sided facial droop, slurred speech.. Vital Signs: 17:10 Temp 98; Weight 55 kg; ap3 17:33 BP 189 / 92; Pulse 85; Resp 17; ap3 18:24 BP 167 / 94; Pulse 85; Pulse Ox 100% ; ap3 19:53 BP 169 / 97; Pulse 86; Resp 16; Pulse Ox 98% on R/A; jb4 NIH Stroke Scale Scores: 18:43 NIHSS Score: 3 ap3 MDM: 17:10 Patient medically screened. rt 19:16 Differential Diagnosis CVA, sepsis, rhabdomyolysis, renal failure. Data reviewed: vital rt signs, nurses notes, lab test result(s), EKG, radiologic studies. Consideration of Admission/Observation Patient was admitted/placed on observation. Management of patient was discussed with the following: Hospitalist: Agrees to admit. I considered the following discharge prescriptions or medication management in the emergency department Medications were administered in the Emergency Department. See MAR. Independent interpretation of the following test(s) in the Emergency Department CT Scan: My interpretation is No hemorrhage seen on interpretation CT scan of. Counseling: I had a detailed discussion with the patient and/or guardian regarding the historical points, exam findings, and any diagnostic results supporting the discharge/admit diagnosis, lab results, radiology results, the need for further work-up and treatment in the hospital. 01/18 17:12 Order name: Blood Culture Adult (2) rt 01/18 17:12 Order name: CBC with Diff; Complete Time: 18:22 rt 08 17:12 Order name: CMP; Complete Time: 18:22 rt 01/18 17:12 Order name: Lactate w/ 2H reflex if indic.; Complete Time: 18:22 rt 01/18 17:12 Order name: Protime (+inr); Complete Time: 18:22 rt 01/18 17:12 Order name: Ptt, Activated; Complete Time: 18:22 rt 01/18 17:12 Order name: Urinalysis w/ reflexes; Complete Time: 18:22 rt 01/18 17:12 Order name: Troponin High Sensitivity; Complete Time: 18:22 rt 01/18 17:12 Order name: CPK; Complete Time: 18:22 rt 01/18 17:12 Order name: TSH; Complete Time: 18:22 rt 01/18 17:35 Order name: Urine Culture EDMS 01/18 17:12 Order name: Chest Single View XRAY; Complete Time: 18:22 rt 01/18 17:12 Order name: CT Head C Spine; Complete Time: 18:22 rt 01/18 17:12 Order name: EKG; Complete Time: 17:13 rt 01/18 17:12 Order name: Accucheck; Complete Time: 17:37 rt 01/18 17:12 Order name: Cardiac monitoring; Complete Time: 17:26 rt 01/18 17:12 Order name: Cath; Complete Time: 17:15 rt 01/18 17:12 Order name: EKG - Nurse/Tech; Complete Time: 17:26 rt 01/18 17:12 Order name: IV Saline Lock - Large Bore; Complete Time: 17:15 rt 01/18 17:12 Order name: Labs collected and sent; Complete Time: 17:37 rt 01/18 17:12 Order name: O2 Per Protocol; Complete Time: 17:15 rt 01/18 17:12 Order name: O2 Sat Monitoring; Complete Time: 17:16 rt 01/18 17:12 Order name: Vital Signs; Complete Time: 17:47 rt 01/18 18:35 Order name: Swallow Screen; Complete Time: 18:52 rt 01/18 18:39 Order name: Misc. Order: document NIH scale; Complete Time: 18:45 la1 EC:29 Rate is 84 beats/min. Rhythm is irregularly irregular, A fib with No ectopy, rt Nonspecific ST and T wave changes. QRS [place] is Normal. QRS interval is normal. QT interval is normal. No Q waves. Administered Medications: 17:27 Drug: NS 0.9% IV 1000 ml Route: IV; Rate: 1 bolus; Site: right antecubital; ap3 18:46 Follow up: IV Status: Completed infusion ap3 18:43 Drug: Rocephin IV 2 grams Route: IV; Rate: calculated rate; Site: right antecubital; ap3 20:37 Follow up: Response: No adverse reaction; IV Status: Completed infusion; IV Intake: [id number] 18:52 Not Given (failed swallow screen ): Aspirin PO 325 mg PO once ap3 Disposition Summary: 01/18/23 18:39 Hospitalization Ordered Hospitalization Status: Inpatient Admission rt Provider: Mike Garcia rt Location: Telemetry/MedSurg (Inpatient) rt Condition: Fair rt Problem: new rt Symptoms: are unchanged rt Bed/Room Type: Standard rt Room Assignment: 212(01/18/23 19:40) cg Diagnosis - UTI/ Urinary tract infection, site not specified rt - Cerebrovascular accident rt Forms: - Medication Reconciliation Form rt - SBAR form rt - Leadership Thank You Letter rt NIH Stroke Scale - NIH Stroke Score Date: 01/18/2023 Time: 18:43 Total Score = 3 10. Dysarthria (speech clarity - read or repeat words) - 1(Mild to Moderate) 11. Extinction and Inattention (visual/tactile/auditory/spatial/personal) - 0(No abnormality) 1a. Level of Consciousness (LOC) - 0(Alert) 1b. Level of Consciousness (LOC) (Month \T\ Age) - 0(Both) 1c. LOC Commands (Open \T\ Closes Eyes/Television Installer Helper) - 0(Both) 2. Best Gaze (Lateral Gaze Paresis) - 0(Normal) 3. Visual Field Loss - 0(No visual loss) 4. Facial Palsy - 1(Minor Paralysis) 5a. Left Arm: Motor (10-second hold) - 0(No drift) 5b. Right Arm: Motor (10-second hold) - 0(No drift) 6a. Left Leg: Motor (5-second hold - always test supine) - 0(No drift) 6b. Right Leg: Motor (5-second hold - always test supine) - 0(No drift) 7. Limb Ataxia (finger/nose \T\ heel/cain - test with eyes open) - 0(Absent) 8. Sensory Loss (pinprick arms/legs/face) - 0(Normal) 9. Best Language: Aphasia (description/naming/reading) - 1(Mild to moderate aphasia) Initials: ap3 Signatures: Dispatcher [employer] Gilbert Clarke, ANGEL-C BOARDING SPECIALIST-Cla1 Ame Carpio RN RN cg Rosa Carney RN RN ap3 Sole Frank RN RN ld1 Tommy Roberts MD MD rt Isac Laurent RN as6 Corrections: (The following items were deleted from the chart) 19:40 18:39 rt cg
[2023-01-18] MEDS ORDERED: CEFTRIAXONE 2000 MG/VIAL ONE (18:48)
[2023-01-18] MEDS ORDERED: NA CHLORIDE 0.9% 100 ML ONE (18:48)
--- NOTE | 2023-01-18 19:41 | P.HP ---
Certification for Inpatient Patient admitted to: Inpatient With expected LOS: >2 Midnights Patient will require the following post-hospital care: None Practitioner: I am a practitioner with admitting privileges, knowledge of patient current condition, hospital course, and medical plan of care. Services: Services provided to patient in accordance with Admission requirements found in Title 42 Section 412.3 of the Code of Federal Regulations Patient History Date of Service: 01/18/23 Reason for admission: CVA History of Present Illness: 82-year-old female with history of chronic back pain, hypertension, chronic left shoulder dislocation with decreased mobility of both arms presents emergency department after being found on the floor at home, she lives alone and had not been seen in approximately 48 hours, she was found lying on the ground incontinent with right-sided facial droop. Her labs were significant for white blood cell count 12.6 creatinine 1.51 GFR 35 BUN 52 troponin 72.7 CPK 581 UA suggestive of urinary tract infection. CT head/C-spine negative for acute traumatic findings, does show hypoattenuation in the left foy radiata/basal ganglia could represent an acute infarct. Background of advanced chronic small vessel ischemic changes. Patient with clear right-sided facial droop as well as dysarthria/expressive aphasia. She will need to be admitted for acute CVA, mild rhabdomyolysis, NSTEMI, UTI. Allergies tetanus immune globulin Allergy (Verified 10/23/22 06:48) Hives/Rash Home Medications: Hydrocodone Bit/Acetaminophen [Hydrocodon-Acetaminophen 5-325] 1 each PO Q6HP PRN 10/17/22 Lactobacillus Combo No.11 [Probiotic] 1 each PO DAILY 10/17/22 Losartan/Hydrochlorothiazide [Hyzaar 100-25 Tablet] 1 each PO DAILY 10/17/22 Rabeprazole Sodium [Aciphex] 20 mg PO DAILY 10/17/22 Zolpidem Tartrate [Ambien] 10 mg PO BEDTIME 10/17/22 - Past Medical/Surgical History -: Hypertension -: Chronic back pain -: Shoulder mobility issues/chronic left shoulder dislocation -: Laminectomy -: Multiple bilateral shoulder surgeries -: Hysterectomy Psychosocial/ Personal History: Patient lives at home, alone. - Family History Family History: Reviewed- Non-Contributory - Social History Smoking Status: Never smoker Alcohol use: No CD- Drugs: No Place of Residence: Home Review of Systems 10-point ROS is otherwise unremarkable General: Weakness Neurological: Weakness, Change in Speech Physical Examination - Physical Exam General: Alert, In no apparent distress, Oriented x3 HEENT: Atraumatic, PERRLA, Mucous membr. moist/pink, EOMI, Sclerae nonicteric Neck: Supple, 2+ carotid pulse no bruit, No LAD, Without JVD or thyroid abnormality Respiratory: Clear to auscultation bilaterally, Normal air movement Cardiovascular: Regular rate/rhythm, Normal S1 S2 Capillary refill: <2 Seconds Gastrointestinal: Normal bowel sounds, No tenderness Musculoskeletal: No tenderness Integumentary: No rashes Neurological: Normal tone, Sensation intact, Normal affect, Abnormal speech, Abnormal strength - Studies Laboratory Data (last 24 hrs) 01/18/23 01/18/23 01/18/23 17:33 17:33 17:33 WBC 12.60 H Hgb 13.9 Hct 43.2 Plt Count 261 PT 10.6 INR 0.96 APTT 30.4 Sodium 142 Potassium 3.5 BUN 52 H Creatinine 1.51 H Glucose 101 Total Bilirubin 1.0 AST 53 H ALT 31 Alkaline Phosphatase 66 Assessment and Plan - Plan Assessment: Acute ischemic CVA NSTEMI Mild rhabdomyolysis UTI Fall/debility Hypertension Chronic pain Plan: Acute ischemic CVA Neurology consult, speech therapy and PT evaluation, aspirin, Plavix, folic acid, statin ordered. She has difficulty with her upper extremities already after multiple shoulder surgeries and chronic left shoulder dislocation, feels generally weak and has obvious right-sided facial droop and dysarthria/e xpressive aphasia. She will likely require rehab services at discharge. Last known well approximately 48 hours ago. NIH score currently 4. NSTEMI Mild rhabdomyolysis Trend CPK, troponin levels, likely related. Will obtain echocardiogram. Aspirin, statin, Plavix ordered. Continue other home medications. Continue gentle IV fluids. Monitor renal function. UTI Continue Rocephin Fall/debility PT evaluation, fall precautions Hypertension We will allow for permissive hypertension this evening. Chronic pain As needed pain medications. DVT PPX: Lovenox Code status: Full Discharge Plan: Home Plan to discharge in: Greater than 2 days - Advance Directives Does patient have a Living Will: No Does patient have a Durable POA for Healthcare: No - Code Status/Comfort Care Code Status Assessed: Yes (Full code) Critical Care: No Time Spent Managing Pts Care (In Minutes): 70
[2023-01-18 20:45] VITALS: O2SAT 98
[2023-01-18] MEDS ORDERED: NA CHLORIDE 0.9% 1,000 ML IV SCH (21:01)
[2023-01-18] MEDS: ATORVASTATIN 20 MG TAB PO SCH (21:01)
[2023-01-18] MEDS ORDERED: ONDANSETRON 4 MG/2 ML VIAL IV PRN (21:01)
[2023-01-18] MEDS ORDERED: LORazepam 2 MG/ML VIAL IV ONE (23:49)
[2023-01-19 00:11] VITALS: BMI 20.4
[2023-01-19 06:45] LABS: Hematocrit 39.6 % (36.0-45.0); Lymphocytes % 19.1 % (15.3-44.8); MCV 98.3 fL (80-100); Platelets 227 thou/uL (152-406); RBC Red Blood Cell Count 4.03 M/uL (3.86-4.86)
[2023-01-19 07:15] LABS: Magnesium 1.9 mg/dL (1.6-2.4); Potassium 2.9 mEq/L (3.5-5.1); T4,Total 7.6 ug/dL (4.8-13.9); Thyroid Stimulating Hormone 0.368 uIU/mL (0.358-3.740)
[2023-01-19 07:19] LABS: Troponin High Sensitivity 77.5 pg/mL (<58.9)
--- NOTE | 2023-01-19 07:40 | RAD REPORT ---
EXAM DESCRIPTION: US - CP - 01/19/2023 12:34 am CLINICAL HISTORY: cva COMPARISON: Head C Spine Mpr Wo Con dated 01/18/2023 TECHNIQUE: Real-time sonographic evaluation of both carotid systems was performed. Doppler interroga tion was performed with waveform tracing bilaterally. FINDINGS: Normal high resistance waveforms are noted in both external carotid arteries. The common c arotid arteries and internal carotid arteries show normal low resistance waveforms. Mixed hard and soft plaque present at the carotid bifurcations. Peak systolic and end diastolic veloc ity values and the ICA/CCA ratios are in the non-hemodynamically significant range. Antegrade flow seen in both vertebral arteries. IMPRESSION: No evidence of a hemodynamically significant stenosis.
[2023-01-19] MEDS: NACHLORIDE 0.45% 1,000 ML IV SCH ×2 (09:36→22:01)
[2023-01-19] MEDS: KCL 20 MEQ/100 mL IVPB 20 MEQ/100 ML BAG IV SCH ×2 (09:36→14:10)
[2023-01-19] MEDS: CEFTRIAXONE 1,000 MG in NA CHLORIDE 0.9% 50 ML IVPB SCH (09:37)
--- NOTE | 2023-01-19 10:25 | P.PN ---
Subjective Date of Service: 01/19/23 Chief Complaint: CVA Subjective: No new changes (still has left facial droop.) Physical Examination - Vital Signs Temperature: 98.1 F Blood Pressure: 187/90 Pulse: 80 Respirations: 16 Pulse Ox (%): 99 - Physical Exam General: Alert, Oriented x3, Other (left facial droop noted.) HEENT: Atraumatic, Normocephalic Neck: Supple Respiratory: Normal air movement Cardiovascular: Regular rate/rhythm, Normal S1 S2 Gastrointestinal: Soft and benign Neurological: Normal speech, Other (slurred speech with left sided weakness.) - Studies Laboratory Data (last 24 hrs) 01/18/23 01/18/23 01/18/23 17:33 17:33 17:33 WBC 12.60 H Hgb 13.9 Hct 43.2 Plt Count 261 PT 10.6 INR 0.96 APTT 30.4 Sodium 142 Potassium 3.5 BUN 52 H Creatinine 1.51 H Glucose 101 Total Bilirubin 1.0 AST 53 H ALT 31 Alkaline Phosphatase 66 Assessment And Plan - Plan 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 PT/ST/OT on board. Neurology on baord. Aspirin, statin and plavix therapy started. we will follow plans for rehabilitation. MRI of the brain pending. Hypertension: We will monitor vital signs per unit protocol and continue antihypertensive medications Hyperlipidemia: We will continue statin therapy Prophylaxis: Patient is on Lovenox for DVT prophylaxis Code status: Full code Disposition: Pending of full work-up for CVA and rehabilitation placement
[2023-01-19] MEDS: CLOPIDOGREL 75 MG TABLET PO SCH (12:19)
[2023-01-19] MEDS: ASPIRIN EC 81 MG TAB PO SCH (12:19)
[2023-01-19] MEDS: FOLIC ACID 1 MG TABLET PO SCH (12:19)
--- NOTE | 2023-01-19 12:21 | RAD REPORT ---
EXAM DESCRIPTION: MRI - MRA Head Wo Cont - 01/19/2023 12:05 pm CLINICAL HISTORY: cva CVA COMPARISON: Carotid Artery Bilateral dated 01/18/2023; Head C Spine Mpr Wo Con dated 01/18/2023 FINDINGS: 3D noncontrast [id number] MR angiography of the [place] was performed. No aneurysm, flow-limiting stenosis or vascular malformation is seen. Forward flow seen in codominant vertebral arteries. The visualized dural venous sinuses appear patent. IMPRESSION: No significant flow abnormality of the [place] of [place] is identified.
--- NOTE | 2023-01-19 12:23 | RAD REPORT ---
EXAM DESCRIPTION: MRI - MRA Neck W/Wo Cont - 01/19/2023 12:04 pm CLINICAL HISTORY: cva COMPARISON: Carotid ultrasound 01/18/2023 TECHNIQUE: Magnetic resonance angiogram of the neck was performed. MultiHance was administered intr avenously. 3D MIPS reconstruction performed FINDINGS: The common carotid, internal carotid and external carotid arteries do not demonstrate a si gnificant stenosis. An aneurysm is not seen. The vertebral arteries are codominant without visualization of an abnormality. IMPRESSION: Unremarkable MRA neck NASCET criteria used. Mild 0-49% stenosis Moderate 50-69% stenosis Severe 70-99% stenosis
--- NOTE | 2023-01-19 12:27 | RAD REPORT ---
EXAM DESCRIPTION: MRI - Brain W/Wo Cont - 01/19/2023 12:05 pm CLINICAL HISTORY: cva COMPARISON: MRA Head Wo Cont dated 01/19/2023; MRA Neck W/Wo Cont dated 01/19/2023 TECHNIQUE: Sagittal T1-weighted images were obtained along with PD/heavily T2-weighted and T2-FLAIR images. Axial DWI and ADC mapping sequences were also obtained along with coronal heavily T2-weighted images were obtained. Post contrast enhanced images were obtained. FINDINGS: Moderate sized left basal ganglia/ foy radiata infarct measuring 3 x 1.9 cm. Advanced c hronic small vessel ischemic changes. Tiny remote lacunar infarcts within the foy radiata and cent rum semiov[place]. No edema or shift of midline structures. No extra-axial fluid collections. Signal void s are seen as a normal finding in the major intracranial vessels. Cerebral atrophy . No mastoid effusion.Paranasal sinuses are clear. IMPRESSION: Acute infarct in the left foy radiata/ basal ganglia corresponding with findings on C T. Advanced chronic small vessel ischemic changes.
--- NOTE | 2023-01-19 14:09 | ECHO ---
HEIGHT: 5 ft 6 in WEIGHT: 126 lb 6.4 oz DATE OF STUDY: 01/19/[address]: Gilbert Arana NP 2-DIMENSIONAL: YES M.MODE: YES DOPPLER: YES COLOR FLOW: YES TDS: PORTABLE: YES DEFINITY: BUBBLE STUDY: DIAGNOSIS: STROKE CARDIAC HISTORY: CATHERIZATION: SURGERY: PROSTHETIC VALVE: PACEMAKER: MEASUREMENTS (cm) DIASTOLIC (NORMALS) SYSTOLIC (NORMALS) IVSd 0.9 (0.6-1.2) LA Diam (1.9-4.0) LVEF 68% LVIDd 3.7 (3.5-5.7) LVIDs 2.3 (2.0-3.5) %FS 37% LVPWd 0.9 (0.6-1.2) Ao Diam 2.5 (2.0-3.7) 2 DIMENSIONAL ASSESSMENT: RIGHT ATRIUM: NORMAL LEFT ATRIUM: NORMAL RIGHT VENTRICLE: NORMAL LEFT VENTRICLE: NORMAL TRICUSPID VALVE: MILD TRICUSPID REGURGITATION MITRAL VALVE: MILD MITRAL REGURGITATION PULMONIC VALVE: NORMAL AORTIC VALVE: MILD AORTIC INSUFFICIENCY PERICARDIAL EFFUSION: NONE AORTIC ROOT: NORMAL LEFT VENTRICULAR WALL MOTION: NORMAL DOPPLER/COLOR FLOW: SEE BELOW COMMENTS: 1. NORMAL LEFT VENTRICULAR EJECTION FRACTION 60-65% 2. NORMAL WALL MOTION 3. MILD MITRAL REGURGITATION, TRICUSPID REGURGITATION, AORTIC INSUFFICIECNY 4. GRADE I DASTOLIC DYSFUNCTION TECHNOLOGIST: SAMANTA HILL
[2023-01-19] MEDS ORDERED: POTASSIUM CL SA 10 MEQ TAB PO ONE (21:03)
[2023-01-19] MEDS: ATORVASTATIN 20 MG TAB PO SCH (21:34)
[2023-01-20 05:45] LABS: Absolute Lymphocytes (CBC) 2.6 K/uL (0.7-4.9); Hematocrit 40.4 % (36.0-45.0); Lymphocytes % 21.9 % (15.3-44.8); MCV 97.9 fL (80-100); MPV 9.7 fL (7.6-11.3); Platelets 327 thou/uL (152-406); RBC Red Blood Cell Count 4.12 M/uL (3.86-4.86)
[2023-01-20 06:07] LABS: Magnesium 1.8 mg/dL (1.6-2.4); Potassium 3.2 mEq/L (3.5-5.1)
[2023-01-20] MEDS ORDERED: POTASSIUM 25 MEQ EFFERV TAB PO ONE (09:00)
[2023-01-20] MEDS: CEFTRIAXONE 1,000 MG in NA CHLORIDE 0.9% 50 ML IVPB SCH (09:26)
[2023-01-20] MEDS: ASPIRIN EC 81 MG TAB PO SCH (09:27)
[2023-01-20] MEDS: FOLIC ACID 1 MG TABLET PO SCH (09:27)
[2023-01-20] MEDS: CLOPIDOGREL 75 MG TABLET PO SCH (09:27)
[2023-01-20] MEDS ORDERED: KCL 20 MEQ/100 mL IVPB 20 MEQ/100 ML BAG IV SCH (10:00)
[2023-01-20] MEDS: NACHLORIDE 0.45% 1,000 ML IV SCH (11:40)
--- NOTE | 2023-01-20 15:50 | P.PN ---
Subjective Date of Service: 01/20/23 Chief Complaint: CVA Subjective: No new changes, Improving Physical Examination - Vital Signs Temperature: 98.3 F Blood Pressure: 189/103 Pulse: 87 Respirations: 16 Pulse Ox (%): 98 - Physical Exam General: Alert, Oriented x3 HEENT: Atraumatic, Normocephalic Neck: Supple Respiratory: Normal air movement Cardiovascular: Regular rate/rhythm, Normal S1 S2 Gastrointestinal: Soft and benign Neurological: Other (slurred speech.) - Studies Microbiology Data (last 24 hrs): 01/18/23 17:18 Clean Catch Urine [place] Count - Final >100,000 CFU/ML. 01/18/23 17:18 Clean Catch Urine - Final Escherichia Coli Gram Neg Matthew Assessment And Plan - Plan CVA: improvement in left hemiparesis and right facial droop. PT/ST/OT on board. Neurology on baord. Aspirin, statin and plavix therapy started. we will follow plans for rehabilitation. MRI of the brain shows acute foy radiata stroke.. Hypertension: We will monitor vital signs per unit protocol and continue antihypertensive medications Hyperlipidemia: We will continue statin therapy Prophylaxis: Patient is on Lovenox for DVT prophylaxis Code status: Full code Disposition: Pending of full work-up for CVA and rehabilitation placement
[2023-01-20] MEDS: ATORVASTATIN 20 MG TAB PO SCH (21:47)
[2023-01-20] MEDS: ZOLPIDEM TARTRATE 10 MG TABLET PO PRN (22:31)
[2023-01-21] MEDS: NACHLORIDE 0.45% 1,000 ML IV SCH ×2 (01:00→04:13)
[2023-01-21 03:17] LABS: Absolute Lymphocytes (CBC) 3.1 K/uL (0.7-4.9); Hematocrit 40.8 % (36.0-45.0); Lymphocytes % 28.4 % (15.3-44.8); MCV 98.2 fL (80-100); Platelets 225 thou/uL (152-406); RBC Red Blood Cell Count 4.15 M/uL (3.86-4.86)
[2023-01-21 03:41] LABS: Magnesium 1.5 mg/dL (1.6-2.4)
--- NOTE | 2023-01-21 07:20 | P.PN ---
Date of Service: 01/21/23 Subjective: Feels ~same as yesterday, no improvement / no worsening minimal PO intake, no appetite denies trouble swallowing, no abd pain Burning when urinating- mild improvement in last 1-2 days afebrile ROS: 10 point ROS as noted above, otherwise negative Physical Exam: GEN: Alert, oriented, NAD HEENT: Normal conjunctiva, sclera anicteric CV: Regular rate and rhythm, no edema Pulm: Nonlabored respirations on room air ABD: Soft, nontender, nondistended Neuro: left hemiparesis and facial droop, slurred speech vitals reviewed Problem List: Acute CVA, left foy radiata/basal ganglia NSTEMI Mild rhabdomyolysis UTI, E. coli Fall/debility Hypertension Hyperlipidemia Chronic pain Acute CVA, left foy radiata/basal ganglia CT head (01/18): Hypoattenuation in the left foy radiata/basal ganglia could represent an acute infarct Carotid u/s (01/18): No evidence of a hemodynamically significant stenosis Brain MRI (01/19): Acute infarct in the left foy radiata/ basal ganglia. Advanced chronic small vessel ischemic changes Neurology consult cont aspirin, Plavix, folic acid, statin cont PT/OT/ST Patient showing mild improvement in left hemiparesis and facial droop. NSTEMI Mild rhabdomyolysis Troponins mildly elevated CPK improving Echo: 68% EF, mild MR, TR, mild aortic insufficiency, grade I diastolic dysfunction cont Aspirin, statin, Plavix Continue other home medications. Monitor renal function. UTI, E. coli Burning when urinating, +difficulty starting Urine cx: E.coli blood cx: NGTD Continue Rocephin (01/19-) afebrile, Leukocytosis improving Fall/debility Continue PT/OT Hypertension Hyperlipidemia Chronic pain Continue home medications as appropriate PRN pain medication VTE: SCD Code: Full Dispo: IPR - pending approval
[2023-01-21] MEDS: LOSARTAN POTASSIUM 50 MG TABLET PO SCH (09:00)
[2023-01-21] MEDS: CLOPIDOGREL 75 MG TABLET PO SCH (09:00)
[2023-01-21] MEDS: FOLIC ACID 1 MG TABLET PO SCH (09:00)
[2023-01-21] MEDS: ASPIRIN EC 81 MG TAB PO SCH (09:00)
[2023-01-21] MEDS: KCL 20 MEQ/100 mL IVPB 20 MEQ/100 ML BAG IV SCH ×2 (09:09→11:45)
[2023-01-21] MEDS: CEFTRIAXONE 1,000 MG in NA CHLORIDE 0.9% 50 ML IVPB SCH (09:12)
[2023-01-21] MEDS ORDERED: AMLODIPINE 2.5 MG TAB PO SCH (15:45)
[2023-01-21] MEDS ORDERED: hydroCHLOROthiazide 25 MG TAB PO ONE (17:54)
[2023-01-21] MEDS: ATORVASTATIN 20 MG TAB PO SCH (21:51)
[2023-01-21] MEDS: ZOLPIDEM TARTRATE 10 MG TABLET PO PRN (21:52)
[2023-01-22 03:31] LABS: Absolute Lymphocytes (CBC) 2.6 K/uL (0.7-4.9); Hematocrit 40.9 % (36.0-45.0); Lymphocytes % 26.2 % (15.3-44.8); MCV 98.2 fL (80-100); MPV 9.8 fL (7.6-11.3); Platelets 207 thou/uL (152-406); RBC Red Blood Cell Count 4.16 M/uL (3.86-4.86)
[2023-01-22 03:39] LABS: Potassium 3.4 mEq/L (3.5-5.1)
[2023-01-22] MEDS ORDERED: HYDRALAZINE HCL 20 MG/ML VIAL IV PRN (06:58)
--- NOTE | 2023-01-22 07:14 | P.PN ---
Date of Service: 01/22/23 Subjective: Doing okay, tearful at times denies abdominal pain, Minimal appetite requiring substantial assistance with self-care, transfers d/t weakness afebrile ROS: 10 point ROS as noted above, otherwise negative Physical Exam: GEN: Alert, oriented, NAD, tearful at times HEENT: Normal conjunctiva, sclera anicteric CV: Regular rate and rhythm, no edema Pulm: Nonlabored respirations on room air ABD: Soft, nontender, nondistended Neuro: hemiparesis and right facial droop, slurred speech vitals reviewed Problem List: Acute CVA, left foy radiata/basal ganglia NSTEMI Mild rhabdomyolysis UTI, E. coli Fall/debility Hypertension Hyperlipidemia Chronic pain Acute CVA, left foy radiata/basal ganglia CT head (01/18): Hypoattenuation in the left foy radiata/basal ganglia could represent an acute infarct Carotid u/s (01/18): No evidence of a hemodynamically significant stenosis Brain MRI (01/19): Acute infarct in the left foy radiata / basal ganglia. Advanced chronic small vessel ischemic changes Neurology consult cont aspirin, Plavix, folic acid, statin cont PT/OT/ST Patient showing mild improvement in hemiparesis and right facial droop. NSTEMI Mild rhabdomyolysis Troponins mildly elevated CPK improving Echo: 68% EF, mild MR, TR, mild aortic insufficiency, grade I diastolic dysfunction cont Aspirin, statin, Plavix Continue other home medications. Monitor renal function UTI, E. coli Burning when urinating, +difficulty starting -- resolved 01/22 Urine cx: E.coli blood cx: NGTD Continue Rocephin (01/19-) afebrile, Leukocytosis resolved Fall/debility Continue PT/OT Hypertension Hyperlipidemia Chronic pain Continue home medications as appropriate PRN pain medication HCTZ added 01/22 VTE: SCD Code: Full Dispo: IPR - pending approval ss/cm consulted
[2023-01-22] MEDS: FOLIC ACID 1 MG TABLET PO SCH (09:00)
[2023-01-22] MEDS: CEFTRIAXONE 1,000 MG in NA CHLORIDE 0.9% 50 ML IVPB SCH (09:25)
[2023-01-22] MEDS: hydroCHLOROthiazide 25 MG TAB PO SCH (09:25)
[2023-01-22] MEDS: ASPIRIN EC 81 MG TAB PO SCH (09:26)
[2023-01-22] MEDS: LOSARTAN POTASSIUM 50 MG TABLET PO SCH (09:26)
[2023-01-22] MEDS: CLOPIDOGREL 75 MG TABLET PO SCH (09:26)
[2023-01-22] MEDS: KCL 20 MEQ/100 mL IVPB 20 MEQ/100 ML BAG IV SCH ×2 (09:26→12:16)
[2023-01-22] MEDS ORDERED: POTASSIUM 25 MEQ EFFERV TAB PO ONE ×2 (13:00→19:59)
[2023-01-22] MEDS: ATORVASTATIN 20 MG TAB PO SCH (21:19)
[2023-01-22] MEDS: ZOLPIDEM TARTRATE 10 MG TABLET PO PRN (21:19)
[2023-01-23 04:18] LABS: Potassium 3.6 mEq/L (3.5-5.1)
--- NOTE | 2023-01-23 08:17 | P.DS ---
Admission Date: 01/18/23 Discharge Date: 01/23/23 Disposition: TRANSFER TO INPATIENT REHAB Discharge Condition: FAIR Reason for Admission: CVA Brief History of Present Illness: 82-year-old female with history of chronic back pain, hypertension, chronic left shoulder dislocation with decreased mobility of both arms presented to the emergency department after being found on the floor at home. She lives alone and had not been seen in approximately 48 hours. She was found lying on the ground incontinent with right-sided facial droop. Her labs were significant for white blood cell count 12.6 creatinine 1.51 GFR 35 BUN 52 troponin 72.7 CPK 581 UA suggestive of urinary tract infection. CT head/C-spine negative for acute traumatic findings, did show hypoattenuation in the left foy radiata/basal ganglia could represent an acute infarct. Background of advanced chronic small vessel ischemic changes. Patient with right-sided facial droop as well as dysarthria/expressive aphasia. She was admitted for acute CVA, mild rhabdomyo lysis, NSTEMI, UTI. Hospital Course: Diagnosis: Acute CVA, left foy radiata/basal ganglia NSTEMI Mild rhabdomyolysis UTI, E. coli Fall/debility Hypertension Hyperlipidemia Chronic pain Patient admitted to the medical floor and the following medical problems addressed: Acute CVA, left foy radiata/basal ganglia CT head (01/18): Hypoattenuation in the left foy radiata/basal ganglia could represent an acute infarct Carotid u/s (01/18): No evidence of a hemodynamically significant stenosis Brain MRI (01/19): Acute infarct in the left foy radiata / basal ganglia. Advanced chronic small vessel ischemic changes Neurology consulted Patient treated aspirin, Plavix, folic acid, statin Seen by PT/OT/ST. Inpatient rehab recommended. NSTEMI Mild rhabdomyolysis/acute kidney injury Troponins mildly elevated CPK improving Echo: 68% EF, mild MR, TR, mild aortic insufficiency, grade I diastolic dysfunction Patient placed on aspirin, statin, Plavix ERNESTO resolved with IV hydration. UTI, E. coli Burning when urinating, +difficulty starting -- resolved 01/22 Urine cx: E.coli blood cx: NGTD Continue Rocephin (01/19-) afebrile, Leukocytosis resolved Patient completed antibiotics for UTI. Fall/debility PT/OT Inpatient rehab recommend. Hypertension Hyperlipidemia Chronic pain Continued home medications. PRN pain medication HCTZ added on 01/22 for hypertension. Vital Signs/Physical Exam: Temp Pulse Resp BP Pulse Ox 96.9 F 87 17 158/78 H 98 01/23/23 04:00 01/23/23 04:00 01/23/23 04:00 01/23/23 04:00 01/23/23 04:00 General: Alert, In no apparent distress, Oriented x3 HEENT: Mucous membr. moist/pink Neck: JVD not distended Respiratory: Clear to auscultation bilaterally, Normal air movement Cardiovascular: No edema, Regular rate/rhythm, Normal S1 S2 Gastrointestinal: Normal bowel sounds, Soft and benign, Non-distended Musculoskeletal: No swelling Integumentary: No rashes Neurological: Other (Dysarthria, right-sided weakness.) Laboratory Data at Discharge: WBC 9.90 thou/uL (4.3-10.9) 01/22/23 02:11 Hgb 13.8 g/dL (12.0-15.0) 01/22/23 02:11 Hct 40.9 % (36.0-45.0) 01/22/23 02:11 Plt Count 207 thou/uL (152-406) 01/22/23 02:11 PT 10.6 SECONDS (9.5-12.5) 01/18/23 17:33 INR 0.96 01/18/23 17:33 APTT 30.4 SECONDS (24.3-36.9) 01/18/23 17:33 Sodium 138 mEq/L (136-145) 01/23/23 03:17 Potassium 3.6 mEq/L (3.5-5.1) 01/23/23 03:17 BUN 21 mg/dL (7-18) H 01/23/23 03:17 Creatinine 0.98 mg/dL (0.55-1.02) 01/23/23 03:17 Glucose 97 mg/dL (74-106) 01/23/23 03:17 Magnesium 1.5 mg/dL (1.6-2.4) L 01/21/23 02:08 Total Bilirubin 1.0 mg/dL (0.2-1.0) 01/18/23 17:33 AST 53 U/L (15-37) H 01/18/23 17:33 ALT 31 U/L (13-56) 01/18/23 17:33 Alkaline Phosphatase 66 U/L (45-117) 01/18/23 17:33 Triglycerides 84 mg/dL (<150) 01/19/23 06:17 Cholesterol 228 mg/dL (<200) H 01/19/23 06:17 HDL Cholesterol 93 mg/dL (40-60) H 01/19/23 06:17 Cholesterol/HDL Ratio 2.45 01/19/23 06:17 Home Medications: Hydrocodone Bit/Acetaminophen [Hydrocodon-Acetaminophen 5-325] 1 each PO Q6HP PRN 10/17/22 Lactobacillus Combo No.11 [Probiotic] 1 each PO DAILY 10/17/22 Losartan/Hydrochlorothiazide [Hyzaar 100-25 Tablet] 1 each PO DAILY 10/17/22 Rabeprazole Sodium [Aciphex] 20 mg PO DAILY 10/17/22 Zolpidem Tartrate [Ambien*] 10 mg PO BEDTIME 10/17/22 Vitamin D [Drisdol*] 50,000 unit PO DAILY 01/18/23 Aspirin [Aspirin EC 81 MG] 81 mg PO DAILY #30 tab 01/23/23 Atorvastatin Calcium [Lipitor*] 40 mg PO BEDTIME tab 01/23/23 Clopidogrel Bisulfate [Plavix*] 75 mg PO DAILY 01/23/23 Folic Acid 1 mg PO DAILY #30 tab 01/23/23 New Medications: Aspirin [Aspirin EC 81 MG] 81 mg PO DAILY #30 tab Folic Acid 1 mg PO DAILY #30 tab Diet: AHA Activity: Fall precautions Followup: NONE,NONE [Primary Care Provider] - 1 Week (Please call to schedule an appointment. ) Time spent managing pt's care (in minutes): 37
[2023-01-23] MEDS ORDERED: POTASSIUM 25 MEQ EFFERV TAB PO ONE (09:00)
[2023-01-23] MEDS: CEFTRIAXONE 1,000 MG in NA CHLORIDE 0.9% 50 ML IVPB SCH (09:00)
[2023-01-23] MEDS: hydroCHLOROthiazide 25 MG TAB PO SCH (09:37)
[2023-01-23] MEDS: ASPIRIN EC 81 MG TAB PO SCH (09:39)
[2023-01-23] MEDS: LOSARTAN POTASSIUM 50 MG TABLET PO SCH (09:39)
[2023-01-23] MEDS: CLOPIDOGREL 75 MG TABLET PO SCH (09:39)
[2023-01-23] MEDS: FOLIC ACID 1 MG TABLET PO SCH (09:39)
[2023-01-23 09:41] VITALS: BP 145/89; TEMP 97.5
--- NOTE | 2023-01-23 15:54 | EKG ---
Test Date: 2023-01-18 Test Time: 17:22:02 Jewelry Designer: MAIRA MEASUREMENT RESULTS: Intervals: Rate: 84 [place]: QRSD: 72 QT: 372 QTc: 439 [place]: P: WI: QRS: 78 T: 105 INTERPRETIVE STATEMENTS: Atrial fibrillation with baseline artifact. Abnormal ECG No previous ECG available for comparison Electronically Signed On 01-23-23 15:53:22 CDT by Vazquez Joens
== END 2023-01-23 10:16 | DRG 64 ==
LOC: ER 17:02 → ERHOLD 19:09 → 2ND 19:59
PROVIDERS: ADMIT Internal Medicine Nephrology; ATTEND Internal Medicine
DX: I63.9 Cerebral infarction, unspecified (principal); I21.4 Non-ST elevation (NSTEMI) myocardial infarction; N39.0 Urinary tract infection, site not specified; M62.82 Rhabdomyolysis; G81.94 Hemiplegia, unspecified affecting left nondominant side; N17.9 Acute kidney failure, unspecified; L89.151 Pressure ulcer of sacral region, stage 1; R47.01 Aphasia; I10 Essential (primary) hypertension; M24.412 Recurrent dislocation, left shoulder; G89.29 Other chronic pain; M54.9 Dorsalgia, unspecified; B96.20 Unspecified Escherichia coli [E. coli] as the cause of diseases classified elsewhere; R29.703 NIHSS score 3; R47.81 Slurred speech; R29.810 Facial weakness; Z60.2 Problems related to living alone; Z88.7 Allergy status to serum and vaccine; Z79.82 Long term (current) use of aspirin; Z79.02 Long term (current) use of antithrombotics/antiplatelets; Z90.710 Acquired absence of both cervix and uterus; Z91.048 Other nonmedicinal substance allergy status; Z79.899 Other long term (current) drug therapy
CPT/HCPCS: 36415; 70450; 70544; 70549; 70553; 71045; 72125; 80048; 80053; 80061; 81001; 82550; 83605; 83735; 84132; 84436; 84443; 84484; 85025; 85610; 85730; 87040; 87077; 87086; 87088; 87186; 92523; 92610; 93005; 93306; 93880; 96361; 96365; 96366; 97116; 97161; 97165; 97530; 99285; A9577; J0360; J0696; J3480; J7030